=== PATIENT | male | born 1965 ===

== ENCOUNTER 2021-08-11 09:24 | Outpatient (CLI) | payer OTHER | END 2021-08-11 09:40 | disposition home or self-care (01) | LOC: RAD 09:24 | PROVIDERS: ATTEND Specialist | DX: E03.9 Hypothyroidism, unspecified (principal); K52.89 Other specified noninfective gastroenteritis and colitis ==

== ENCOUNTER 2022-12-18 11:16 | Outpatient (CLI) | payer OTHER | END 2022-12-18 11:37 | disposition home or self-care (01) | LOC: SONOGRAMA 11:16 | PROVIDERS: ATTEND Internal Medicine | DX: I12.9 Hypertensive chronic kidney disease with stage 1 through stage 4 chronic kidney disease, or unspecified chronic kidney disease (principal); N18.32 Chronic kidney disease, stage 3b ==

== ENCOUNTER 2024-02-28 09:53 | Outpatient (CLI) | payer OTHER | END 2024-02-28 10:01 | disposition home or self-care (01) | LOC: RAD 09:53 | PROVIDERS: ATTEND Internal Medicine | DX: N18.31 Chronic kidney disease, stage 3a (principal) ==